=== PATIENT | male | born 1970 | race Caucasian/White ===

== ENCOUNTER 2018-12-09 13:02 | Inpatient (IN) ==
[2018-12-09] MEDS ORDERED: SODIUM CHLORIDE 0.9% 1,000 ML IV STA (13:25)
[2018-12-09] MEDS ORDERED: ONDANSETRON 4 MG/2 ML VIAL IV STA (13:45)
[2018-12-09 13:47] LABS: Basophils # 0.1 10*3/uL (0.0-0.2); Basophils % 0.8 % (0.0-0.8); Eosinophils # 0.3 10*3/uL (0.0-0.87); Eosinophils % 1.9 % (0.00-10.9); Hematocrit 44.4 VOL% (42.0-52.0); Immature Granulocytes % 0.8 %; Immature Granulocytes Absolute 0.11 #; Lymphocytes # 2.2 10*3/uL (1.4-4.0); Lymphocytes % 16.7 % (21.2-54.2); Mean Corpuscular HGB Conc 33.8 GM/DL (32-36); Mean Corpuscular Hemoglobin 31 PG (27-34); Mean Corpuscular Volume 93.1 FL (87-102); Mean Platelet Volume 9.6 FL (9.6-12.0); Monocytes # 0.8 10*3/uL (0.11-0.8); Monocytes % 5.9 % (1.7-12.7); Neutrophils # 9.7 10*3/uL (1.4-7.4); Neutrophils % 73.9 % (38.7-73.9); Platelet Count 226 T/CUMM (130-400); Red Blood Count 4.77 MC/CUMM (3.8-5.5); Red Cell Distribution Width 13.1 % (9.3-17.3); White Blood Count 13.2 T/CUMM (4-12)
[2018-12-09 14:13] LABS: Albumin 4.3 G/DL (3.4-5.0); Bilirubin,Total 0.4 MG/DL (0.2-1.0); Calcium 8.7 MG/DL (8.5-10.1); Osmolality,Calculated 276.8 MOS/KG (273-304); Potassium 3.9 MMOL/L (3.5-5.1)
[2018-12-09 14:55] LABS: Apearance,Urine CLEAR (Clear); Bilirubin,Urine Negative (Negative); Blood, Urine Small mg/dL (Negative); Glucose,Urine (UA) Negative (Negative); Hyaline Casts,Urine 1 /LPF (0-3); Ketones,Urine Negative (Negative); Mucus,Urine Occasional /LPF (Occasional); Nitrite,Urine Negative (Negative); Protein,Urine 30 MG/DL; RBC,Urine 5 /HPF (0-4); Squamous Epithelial Cell,Urine Occasional /HPF (0-10); Urine Color Yellow (Yellow); Urine Specific Gravity 1.021 (1.001-1.035); Urine Urobilinogen < 2.0 EU/DL (0.2-1.0); WBC,Urine <1 /HPF (0-6)
[2018-12-09 15:04] LABS: Barbiturates Screen,Urine Negative (Negative); Benzodiazepines Screen,Urine Negative (Negative); Cannabinoid Screen,Urine Negative (Negative); Opiate Screen,Urine Positive (Negative); Phencyclidine Screen,Urine Negative (Negative)
[2018-12-09] MEDS ORDERED: ONDANSETRON 4 MG/2 ML VIAL IV PRN (16:18)
[2018-12-09] MEDS ORDERED: DEXTROSE 50% 25 GM/50 ML VIAL IV PRN (16:18)
[2018-12-09] MEDS ORDERED: GLUCAGON 1 MG VIAL IM PRN (16:18)
[2018-12-09] MEDS: SODIUM CHLORIDE 0.9% 1,000 ML IV SCH (17:42)
[2018-12-09] MEDS: INSULIN REGULAR 100 UNIT/ML SUBCUT SCH ×2 (17:43→21:01)
[2018-12-09] MEDS ORDERED: PARoxetine 20 MG TABLET PO SCH (21:00)
[2018-12-09] MEDS: PRAMIPEXOLE 0.25 MG TABLET PO SCH (21:01)
[2018-12-09] MEDS: ASPIRIN EC 81 MG TABLET PO SCH (21:01)
[2018-12-09] MEDS: NEBIVOLOL 10 MG TABLET PO SCH (21:01)
[2018-12-09] MEDS: DOCUSATE SODIUM 100 MG CAPSULE PO SCH (21:01)
[2018-12-10] MEDS: SODIUM CHLORIDE 0.9% 1,000 ML IV SCH ×3 (02:11→22:00)
[2018-12-10 06:02] LABS: Basophils # 0.1 10*3/uL (0.0-0.2); Basophils % 0.7 % (0.0-0.8); Eosinophils # 0.3 10*3/uL (0.0-0.87); Eosinophils % 2.3 % (0.00-10.9); Hematocrit 42.9 VOL% (42.0-52.0); Hemoglobin 14.1 GM/DL (14.0-18.0); Immature Granulocytes % 0.6 %; Immature Granulocytes Absolute 0.09 #; Lymphocytes # 2.9 10*3/uL (1.4-4.0); Lymphocytes % 19.9 % (21.2-54.2); Mean Corpuscular HGB Conc 32.9 GM/DL (32-36); Mean Corpuscular Hemoglobin 31 PG (27-34); Mean Corpuscular Volume 94.7 FL (87-102); Monocytes # 0.9 10*3/uL (0.11-0.8); Neutrophils # 10.1 10*3/uL (1.4-7.4); Neutrophils % 70.5 % (38.7-73.9); Platelet Count 222 T/CUMM (130-400); Red Blood Count 4.53 MC/CUMM (3.8-5.5); Red Cell Distribution Width 13.2 % (9.3-17.3); White Blood Count 14.3 T/CUMM (4-12)
[2018-12-10 06:22] LABS: Calcium 8.4 MG/DL (8.5-10.1); Osmolality,Calculated 278.5 MOS/KG (273-304); Potassium 3.8 MMOL/L (3.5-5.1); Risk Ratio 4.44; VLDL CHOLESTEROL 22.2 MG/DL
[2018-12-10] MEDS: LEVOTHYROXINE 137 MCG TABLET PO SCH (07:00)
[2018-12-10] MEDS: INSULIN REGULAR 100 UNIT/ML SUBCUT SCH ×4 (07:20→20:29)
[2018-12-10] MEDS ORDERED: REGADENOSON 0.4 MG/5 ML SYRINGE IV ONE (08:48)
[2018-12-10] MEDS ORDERED: ACETAMINOPHEN 325 MG TABLET PO PRN (09:18)
[2018-12-10] MEDS: PIPERACILLIN/TAZOBACTAM 3,375 MG in SODIUM CHLORIDE 0.9% 100 ML IV SCH ×3 (09:26→23:50)
[2018-12-10] MEDS: DOCUSATE SODIUM 100 MG CAPSULE PO SCH ×2 (09:26→20:28)
[2018-12-10] MEDS: PANTOPRAZOLE 40 MG TABLET PO SCH (09:26)
[2018-12-10] MEDS ORDERED: LORazepam 2 MG/1 ML VIAL IV ONE (10:22)
[2018-12-10] MEDS: amLODIPine 5 MG TABLET PO SCH (15:50)
[2018-12-10] MEDS: CLOPIDOGREL 75 MG TABLET PO SCH (15:50)
[2018-12-10] MEDS: ENOXAPARIN 40 MG/0.4 ML SYRINGE SUBCUT SCH (15:50)
[2018-12-10] MEDS: BUTALBITAL/ACETAMIN/CAFFEINE 50-325-40 MG TABLET PO PRN (16:21)
[2018-12-10] MEDS: NEBIVOLOL 10 MG TABLET PO SCH (20:28)
[2018-12-10] MEDS: PRAMIPEXOLE 0.25 MG TABLET PO SCH (20:28)
[2018-12-10] MEDS: ASPIRIN EC 81 MG TABLET PO SCH (20:28)
[2018-12-10] MEDS: ROSUVASTATIN 20 MG TABLET PO SCH (20:28)
[2018-12-11 06:09] LABS: Basophils # 0.1 10*3/uL (0.0-0.2); Basophils % 0.6 % (0.0-0.8); Eosinophils # 0.3 10*3/uL (0.0-0.87); Eosinophils % 2.4 % (0.00-10.9); Hemoglobin 14.1 GM/DL (14.0-18.0); Immature Granulocytes % 0.6 %; Immature Granulocytes Absolute 0.08 #; Lymphocytes # 2.6 10*3/uL (1.4-4.0); Lymphocytes % 19.7 % (21.2-54.2); Mean Corpuscular HGB Conc 32.8 GM/DL (32-36); Mean Corpuscular Hemoglobin 31 PG (27-34); Mean Corpuscular Volume 95.1 FL (87-102); Mean Platelet Volume 10.2 FL (9.6-12.0); Monocytes # 0.9 10*3/uL (0.11-0.8); Monocytes % 6.6 % (1.7-12.7); Neutrophils # 9.3 10*3/uL (1.4-7.4); Neutrophils % 70.1 % (38.7-73.9); Platelet Count 215 T/CUMM (130-400); Red Blood Count 4.52 MC/CUMM (3.8-5.5); Red Cell Distribution Width 12.9 % (9.3-17.3); White Blood Count 13.3 T/CUMM (4-12)
[2018-12-11] MEDS: LEVOTHYROXINE 137 MCG TABLET PO SCH (06:32)
[2018-12-11 06:39] LABS: Calcium 8.4 MG/DL (8.5-10.1); Osmolality,Calculated 280.4 MOS/KG (273-304); Potassium 3.7 MMOL/L (3.5-5.1)
[2018-12-11] MEDS: INSULIN REGULAR 100 UNIT/ML SUBCUT SCH ×4 (07:58→21:26)
[2018-12-11] MEDS: PIPERACILLIN/TAZOBACTAM 3,375 MG in SODIUM CHLORIDE 0.9% 100 ML IV SCH ×3 (08:00→23:29)
[2018-12-11] MEDS: DOCUSATE SODIUM 100 MG CAPSULE PO SCH ×2 (08:04→21:25)
[2018-12-11] MEDS: CLOPIDOGREL 75 MG TABLET PO SCH (08:04)
[2018-12-11] MEDS: CITALOPRAM 20 MG TABLET PO SCH (08:04)
[2018-12-11] MEDS: amLODIPine 5 MG TABLET PO SCH (08:04)
[2018-12-11] MEDS: PANTOPRAZOLE 40 MG TABLET PO SCH (08:06)
[2018-12-11] MEDS: SODIUM CHLORIDE 0.9% 1,000 ML IV SCH (08:08)
[2018-12-11] MEDS: BUTALBITAL/ACETAMIN/CAFFEINE 50-325-40 MG TABLET PO PRN (10:38)
[2018-12-11] MEDS: ENOXAPARIN 40 MG/0.4 ML SYRINGE SUBCUT SCH (15:24)
[2018-12-11] MEDS: PRAMIPEXOLE 0.25 MG TABLET PO SCH (21:25)
[2018-12-11] MEDS: ROSUVASTATIN 20 MG TABLET PO SCH (21:25)
[2018-12-11] MEDS: ASPIRIN EC 81 MG TABLET PO SCH (21:25)
[2018-12-11] MEDS: NEBIVOLOL 10 MG TABLET PO SCH (21:26)
[2018-12-12] MEDS: LEVOTHYROXINE 137 MCG TABLET PO SCH (06:09)
[2018-12-12] MEDS: DOCUSATE SODIUM 100 MG CAPSULE PO SCH (09:08)
[2018-12-12] MEDS: amLODIPine 5 MG TABLET PO SCH (09:08)
[2018-12-12] MEDS: PIPERACILLIN/TAZOBACTAM 3,375 MG in SODIUM CHLORIDE 0.9% 100 ML IV SCH (09:09)
[2018-12-12] MEDS: PANTOPRAZOLE 40 MG TABLET PO SCH (09:09)
[2018-12-12] MEDS: CITALOPRAM 20 MG TABLET PO SCH (09:09)
[2018-12-12] MEDS: INSULIN REGULAR 100 UNIT/ML SUBCUT SCH ×2 (09:09→12:31)
[2018-12-12] MEDS: CLOPIDOGREL 75 MG TABLET PO SCH (09:09)
[2018-12-12 14:59] VITALS: BP 129/73
== END 2018-12-12 14:49 | disposition home or self-care (01) | DRG 66 ==
LOC: N.EDINP 13:02 → N.ED 13:02 → N.EDINP 16:50 → N.5E 17:12
PROVIDERS: ADMIT Internal Medicine; ATTEND Internal Medicine